=== PATIENT | female | born 1960 | race Caucasian/White ===

== ENCOUNTER 2019-05-14 05:33 | Inpatient (IN) | payer BC ==
[~2019-05-14 05:33] MED LIST: Buffered Lidocaine 1% SYRIN* 1 ML/SYRINGE INTRADERM ONE; Tranexamic Acid 1,000 MG in NS 0.9% 50 ML* (outpatient use) IV SCH
--- OUTSIDE RECORDS SUMMARY | 2019-05-14 05:36 | XMS REPORT | Continuity of Care Document ---
:1960 External Reference #:[id number] Author Name Lu Vance M.D. 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 Onset: 04/07/2019 Localized, primary osteoarthritis Lu Vance M.D. Onset: 04/07/2019 Social History Type Date Description Comments Sex Unknown Tobacco Use Start: Unknown Patient has never smoked Smoking Status Reviewed: 04/07/19 Patient has never smoked Allergies, Adverse Reactions, Alerts Description No Known Drug Allergies Medications Active Medications SIG Qnty Indications Ordering Provider Date Spiriva Handihaler take one inhalation Unknown a day 18mcg Capsules Meloxicam 1 by mouth every Unknown 15mg Tablets day Albuterol Sulfate HFA Unknown 108(90Base) mcg/Act Aerosol Enalapril Maleate 1 by mouth every Unknown 10mg day Tablets Fluoxetine HCL 1 by mouth every Unknown 20mg day Capsules Immunizations Description No Information Available Vital Signs Date Vital Result Comment 04/07/2019 9:31am Height 65 inches 5'5" Weight 185.00 lb Heart Rate 76 /min BP Systolic 126 mmHg BP Diastolic 82 mmHg Body Temperature 97.9 F Pain Level 3 BMI (Body Mass Index) 30.8 kg/m2 Results Description No Information Available Procedures Description No Information Available Medical Devices Description No Information Available Encounters Description No Information Available Assessments Date Code Description Provider 04/07/2019 M25.561 Pain in right knee Lu Vance M.D. 04/07/2019 M25.461 Effusion, right knee Lu Vance M.D. 04/07/2019 M17.11 Unilateral primary osteoarthritis, right knee Lu Vance M.D. 04/07/2019 M21.161 Varus deformity, not elsewhere classified, Lu Vance M.D. right knee Plan of Treatment 04/07/2019 - Lu Vance M.D.M25.561 Pain in right kneeFollow up:Follow up: 7-10 days before uhqsaphI45.461 Effusion, right kneeM17.11 Unilateral primary osteoarthritis, right kneeM21.161 Varus deformity, not elsewhere classified, right knee Functional Status Description No Information Available Mental Status Description No Information Available Referrals Description No Information Available
--- OUTSIDE RECORDS SUMMARY | 2019-05-14 05:36 | XMS REPORT | Continuity of Care Document ---
:1960 External Reference #:[id number] Author Name Lu Vance M.D. 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 Onset: 04/07/2019 Localized, primary osteoarthritis Lu Vance M.D. Onset: 04/07/2019 Social History Type Date Description Comments Sex Unknown Tobacco Use Start: Unknown Patient has never smoked Smoking Status Reviewed: 04/30/19 Patient has never smoked Allergies, Adverse Reactions, Alerts Description No Known Drug Allergies Medications Active Medications SIG Qnty Indications Ordering Provider Date Spiriva Handihaler take one inhalation Unknown a day 18mcg Capsules Meloxicam 1 by mouth every Unknown 15mg Tablets day Albuterol Sulfate HFA Unknown 108(90Base) mcg/Act Aerosol Enalapril Maleate 1 by mouth every Unknown 10mg day Tablets Fluoxetine HCL 3 tabs by mouth Unknown 20mg every day Capsules Vascepa Unknown Montelukast Sodium Unknown Zyrtec Allergy Unknown Immunizations Description No Information Available Vital Signs Date Vital Result Comment 04/30/2019 1:07pm Height 65 inches 5'5" Weight 180.00 lb Heart Rate 78 /min BP Systolic 118 mmHg BP Diastolic 74 mmHg Body Temperature 98.4 F Pain Level 2 BMI (Body Mass Index) 30.0 kg/m2 04/07/2019 9:31am Height 65 inches 5'5" Weight 185.00 lb Heart Rate 76 /min BP Systolic 126 mmHg BP Diastolic 82 mmHg Body Temperature 97.9 F Pain Level 3 BMI (Body Mass Index) 30.8 kg/m2 Results Test Acquired Date Facility Test Result H/L Range Note CBC Auto 04/30/2019 [facility] White Blood 5.2 10^3/uL Normal 3.5-10.[address] [place] [address] [phone] Red Blood Count 4.62 10^6/uL Normal 3.70-4.87 Hemoglobin 13.4 g/dL Normal 12.0-16.0 Hematocrit 39 % Normal 35-47 Mean Corpuscular Volume 85 fL Normal 80-97 Mean Corpuscular Hemoglobin 29 pg Normal 27-31 Mean Corpuscular HGB Conc 34 g/dL Normal 31-36 Red Cell Distribution Width 14 % Normal 10-15 Platelet Count 211 10^3/uL Normal 150-450 Mean Platelet Volume 8.0 fL Normal 7.4-10.4 Abs Neutrophils 3.2 10^3/uL Normal 1.5-7.7 Abs Lymphocytes 1.3 10^3/uL Normal 1.0-4.8 Abs Monocytes 0.5 10^3/uL Normal 0-0.8 Abs Eosinophils 0.2 10^3/uL Normal 0-0.6 Abs Basophils 0.0 10^3/uL Normal 0-0.2 Abs Nucleated RBC 0.0 10^3/uL Granulocyte % 62.3 % Lymphocyte % 24.1 % Monocyte % 10.0 % Eosinophil % 3.0 % Basophil % 0.6 % Nucleated Red Blood Cells % 0.1 Inr/Protime 04/30/2019 [facility] Inr 0.99 Normal 0.82-1.[address] [place] [address] [phone] Laboratory test 04/30/2019 [facility] Partial 38.4 High 26.0- 38.[address] [place] [address] Time PTT [phone] Comp Metabolic 04/30/2019 [facility] Sodium 139 mmol/L Normal 135-[address] [place] [address] [phone] Potassium 4.0 mmol/L Normal 3.5-5.0 Chloride 105 mmol/L Normal 101-111 Co2 Carbon Dioxide 27 mmol/L Normal 22-32 Anion Gap 7 mmol/L Normal 2-11 Glucose 88 mg/dL Normal 70-100 Blood Urea Nitrogen 25 mg/dL High 6-24 Creatinine 0.65 mg/dL Normal 0.51-0.95 BUN/Creatinine Ratio 38.5 High 8-20 Calcium 9.5 mg/dL Normal 8.6-10.3 Total Protein 6.7 g/dL Normal 6.4-8.9 Albumin 4.2 g/dL Normal 3.2-5.2 Globulin 2.5 g/dL Normal 2-4 Albumin/Globulin Ratio 1.7 Normal 1-3 Total Bilirubin 0.40 mg/dL Normal 0.2-1.0 Alkaline Phosphatase 87 U/L Normal 34-104 Alt 20 U/L Normal 7-52 Ast 19 U/L Normal 13-39 Egfr Non- 94.3 >60 Egfr 114.1 >60 2 Type & Screen 04/30/2019 [facility] Patient Blood Type A Positive [address] [place] [address] [phone] Antibody Screen NEGATIVE Urine Culture And 04/30/2019 [facility] Urine Culture SEE RESULT [address] [place] [address] [phone] 1 Standard intensity warfarin therapeutic range: 2.0-3.0 High intensity warfarin therapeutic range: 2.5-3.5 2 Because ethnic data is not always readily available, this report includes an eGFR for both -Americans and non- Americans. The National Kidney Disease Education Program (NKDEP) does not endorse the use of the MDRD equation for patients that are not between the ages of 18 and 70, are , have extremes of body size, muscle mass, or nutritional status, or are non- or non-. According to the National Kidney Foundation, irrespective of diagnosis, the stage of the disease is based on the level of kidney function: Stage Description GFR(mL/min/1.73 m(2)) 1 Kidney damage with normal or decreased GFR 90 2 Kidney damage with mild decrease in GFR 60-89 3 Moderate decrease in GFR 30-59 4 Severe decrease in GFR 15-29 5 Kidney failure <15 (or dialysis) 3 SEE RESULT BELOW Name: DIPTI LAINEZ Natalya : [address]: Lu Vance MD Acct: [id number] Unit: [id number] AGE: 58 Location: [facility] Re04/30/19 SEX: F Status: REG REF SPEC: [id number] JORDANA: 04/30/[address] [facility] DR: Lu Vance MD REQ: [id number] RECD: 04/30/19 STATUS: BHARAT SCHILLING DR: Raj Balbuena MD _ SOURCE: URINE SPDESC: ORDERED: Urine Culture QUERIES: Urine Source: Clean Catch Procedure Result Reported Site Urine Culture Final 05/01/19- 1028 ML No Growth (<1,000 CFU/mL) * ML - Main Lab . END OF REPORT DEPARTMENT OF PATHOLOGY, [address] [place] [address] Francois Lu M.D. Director [facility] # [id number] Procedures Description No Information Available Medical Devices Description No Information Available Encounters Type Date Location Provider Dx Diagnosis Office Visit 04/07/2019 [facility] Lu Vance, M25.561 Pain in right 8:45a at [place] M.DCarlos knee M25.461 Effusion, right knee M17.11 Unilateral primary osteoarthritis, right knee M21.161 Varus deformity, not elsewhere classified, right knee Assessments Date Code Description Provider 04/30/2019 M21.161 Varus deformity, not elsewhere classifiedLu M.D. right knee 04/30/2019 M17.11 Unilateral primary osteoarthritis, right knee Lu Vance M.D. 04/30/2019 M25.461 Effusion, right knee Lu Vance M.D. 04/30/2019 M25.561 Pain in right knee Lu Vance M.D. 04/07/2019 M25.561 Pain in right knee Lu Vance M.D. 04/07/2019 M25.461 Effusion, right knee Lu Vance M.D. 04/07/2019 M17.11 Unilateral primary osteoarthritis, right knee Lu Vance M.D. 04/07/2019 M21.161 Varus deformity, not elsewhere classified, Lu Vance M.D. right knee Plan of Treatment Future Appointment(s):05/14/2019 8:30 am - Lu Vance M.D. at [facility] at Yqdwqq3704/30/2019 - Lu Vance M.D.M21.161 Varus deformity, not elsewhere classified, right kneeFollow up:Follow up: 2 weeks after nxtksmsM58.11 Unilateral primary osteoarthritis, right kneeM25.461 Effusion, right kneeM25.561 Pain in right knee Functional Status Description No Information Available Mental Status Description No Information Available Referrals Description No Information Available
--- OUTSIDE RECORDS SUMMARY | 2019-05-14 05:36 | XMS REPORT | Continuity of Care Document ---
:1960 External Reference #:[id number] Author Name Lu Vance M.D. 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 [phone] Problems Active Problems Provider Date Acquired genu [...] Result H/L Range Note CBC Auto 04/30/2019 [facility] White Blood 5.2 10^3/uL Normal 3.5-10.[address] [place] [address] [phone] Red Blood Count 4.62 10^6/uL Normal 3.70-4.87 [...] Red Blood Cells % 0.1 Inr/Protime 04/30/2019 [facility] Inr 0.99 Normal 0.82-1.[address] [place] [address] [phone] Laboratory test 04/30/2019 [facility] Partial 38.4 High 26.0- 38.[address] [place] [address] Time PTT [phone] Comp Metabolic 04/30/2019 [facility] Sodium 139 mmol/L Normal 135-[address] [place] [address] [phone] Potassium 4.0 mmol/L Normal 3.5-5.0 Chloride 105 [...] 114.1 >60 2 Type & Screen 04/30/2019 [facility] Patient Blood Type A Positive [address] [place] [address] [phone] Antibody Screen NEGATIVE Urine Culture And 04/30/2019 [facility] Urine Culture SEE RESULT [address] [place] [address] [phone] 1 Standard intensity warfarin therapeutic range: 2.0-3.0 [...] [address]: Lu Vance MD Acct: [id number] Unit: [id number] AGE: 58 Location: [facility] Re04/30/19 SEX: F Status: REG REF SPEC: [id number] JORDANA: 04/30/[address] [facility] [address]: Lu Vance MD REQ: [id number] RECD: 04/30/19 STATUS: BHARAT SCHILLING DR: Raj Balbuena MD _ SOURCE: URINE SPDESC: ORDERED: Urine Culture QUERIES: Urine Source: Clean Catch Procedure Result Reported Site Urine Culture Final 05/01/19- 1028 ML No Growth (<1,000 CFU/mL) * ML - Main Lab . END OF REPORT DEPARTMENT OF PATHOLOGY, [address] [place] [address] Francois Lu M.D. Director [facility] # [id number] Procedures Description No Information Available Medical Devices Description No Information Available Encounters Type Date Location Provider Dx Diagnosis Office Visit 04/07/2019 [facility] Lu Vance, M25.561 Pain in right 8:45a at [place] M.DCarlos knee M25.461 Effusion, right knee M17.11 [...] of Treatment Future Appointment(s):05/14/2019 8:30 am - SOLIS Ochoa at [facility] at Xfzgjl0605/26/2019 11:30 am - Lu Vance M.D. at [facility] at Uowqvx0405/14/2019 8:30 am - Lu Vance M.D. at [facility] at Msnyrx8704/30/2019 - Lu Vance M.D.M21.161 Varus deformity, not elsewhere classified, right kneeFollow up:Follow up: 2 weeks after fkoxwthX76.11 Unilateral primary osteoarthritis, right kneeM25.461 Effusion, right kneeM25.561 Pain in right knee Functional Status Description No Information Available Mental Status Description No Information Available Referrals Description No Information Available
--- OUTSIDE RECORDS SUMMARY | 2019-05-14 05:36 | XMS REPORT | Continuity of Care Document ---
:1960 External Reference #:[id number] Author Name Lu Vance M.D. 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 Problems Active Problems Provider Date Acquired genu [...] Result H/L Range Note CBC Auto 04/30/2019 [facility] White Blood 5.2 10^3/uL Normal 3.5-10.[address] [place] [address] [phone] Red Blood Count 4.62 10^6/uL Normal 3.70-4.87 [...] Red Blood Cells % 0.1 Inr/Protime 04/30/2019 [facility] Inr 0.99 Normal 0.82-1.[address] [place] [address] [phone] Laboratory test 04/30/2019 [facility] Partial 38.4 High 26.0- 38.[address] [place] [address] Time PTT [phone] Comp Metabolic 04/30/2019 [facility] Sodium 139 mmol/L Normal 135-[address] [place], [place] [address] [phone] Potassium 4.0 mmol/L Normal 3.5-5.0 Chloride 105 [...] 114.1 >60 2 Type & Screen 04/30/2019 [facility] Patient Blood Type A Positive [address] [place] [address] [phone] Antibody Screen NEGATIVE 1 Standard intensity warfarin therapeutic range: 2.0-3.0 [...] 15-29 5 Kidney failure <15 (or dialysis) Procedures Description No Information Available Medical Devices Description No Information Available Encounters Type Date Location Provider Dx Diagnosis Office Visit 04/07/2019 [facility] Lu Vance, M25.561 Pain in right 8:45a at [facility]. knee M25.461 Effusion, right knee M17.11 Unilateral primary osteoarthritis, right knee M21.161 Varus deformity, not elsewhere classified, right knee Assessments Date Code Description Provider 04/30/2019 M21.161 Varus deformity, not elsewhere classified, Lu Vance M.D. right knee 04/30/2019 M17.11 Unilateral primary [...] 8:30 am - Lu Vance M.D. at [facility] at Hiklys5704/30/2019 - Lu Vance M.D.M21.161 Varus deformity, not elsewhere classified, right kneeFollow up:Follow up: 2 weeks after rkfrmryH82.11 Unilateral primary osteoarthritis, right kneeM25.461 Effusion, right kneeM25.561 Pain in right knee Functional Status Description No Information Available Mental Status Description No Information Available Referrals Description No Information Available
--- OUTSIDE RECORDS SUMMARY | 2019-05-14 05:36 | XMS REPORT ---
:1960 Author Name Liset Handy Address [address] [place] [address] Care Team Providers Name Role Phone Liset Handy Unavailable Unavailable PROBLEMS Type Condition ICD9-CM VLQ43-WH Onset Condition SNOMED Code Code Code Dates Status Problem Leiomyoma of uterus, D25.9 Active 96241400 unspecified Problem Mammographic R92.0 Active 96370039092570 microcalcification found on diagnostic imaging of breast Problem Family history of Z80.3 Active 437024315 malignant neoplasm of breast Problem Postmenopausal N95.0 Active 18931817 bleeding ALLERGIES No Information ENCOUNTERS Encounter Location Date Diagnosis [facility] O[facility]YN 103 July, Mammographic OBGYN [facility] microcalcification found on [place] [id number] diagnostic imaging of breast R92.0 [facility] 103 July, OBGYN [place], [place] [id number] [facility] July, Postmenopausal bleeding OBGYN [facility] N95.0 ; Leiomyoma of uterus, [place], [place] [id number] unspecified D25.9 and Family history of malignant neoplasm of breast Z80.3 [facility] 103 July, [facility] [place] [id number] [facility] O[facility]YN 103 July, Encounter for gynecological OBGYN [facility] examination (general) [place], [place] [id number] (routine) with abnormal findings Z01.411 ; Encounter for screening for malignant neoplasm of cervix Z12.4 ; Encounter for screening for malignant neoplasm of colon Z12.11 ; Encounter for screening mammogram for malignant neoplasm of breast Z12.31 ; Postmenopausal bleeding N95.0 and Family history of malignant neoplasm of breast Z80.3 IMMUNIZATIONS No Known Immunizations SOCIAL HISTORY Never Assessed REASON FOR REFERRAL FUNCTIONAL STATUS PLAN OF CARE VITAL SIGNS MEDICATIONS Unknown Medications PROCEDURES No Known procedures RESULTS No Results REASON FOR VISIT [facility] 10/28/18 Insurance Providers [facility] Member Patient Patient Patient Patient Patient Subscriber Subscriber Subscriber Group Insurance Plan Plan Plan Plan ID Relationship Address Phone Name Date of ID Name Date of No Type Insurance Insurance Insurance Coverage to Subscriber Address Phone Name Dates [place] [phone] [place]mer[place] [id number] [place] [id number] [address] Cross/Blue [facility] Cross/Blue Shield [id number] Shield MEDICAL (GENERAL) HISTORY Type Description Date Medical History hypertension Medical History anxiety Medical History depression Medical History arthritis Medical History asthma Medical History eczema Surgical History vein surgery 1998 Surgical History reduction mammoplasty 2002 Surgical History colonoscopy 2012 Hospitalization History several stays as a child d/t asthma Hospitalization History childbirth 1986 Hospitalization History childbirth 1998
[2019-05-14] MEDS ORDERED: Lactated Ringers 1000 ML Bag* 1,000 ML IV SCH ×2 (06:00→11:00)
[2019-05-14] MEDS ORDERED: ceFAZolin 2 GM in NS PREMIX(*) 2 GM/100 ML BAG IVPB ONE (06:01)
[2019-05-14] MEDS ORDERED: ROPIVACAINE 5 MG/ML 30 ML BTL (0.5%) ONE ×2 (06:36→07:15)
[2019-05-14] MEDS ORDERED: Lidocaine 2% PF * 5 ML VIAL ONE ×2 (07:14→07:15)
[2019-05-14] MEDS ORDERED: Propofol* 10 MG/ML 20 ML BTL ONE (07:14)
[2019-05-14] MEDS ORDERED: Dexmedetomidine* 200 MCG/2 ML 2 ML VIAL ONE (07:15)
[2019-05-14] MEDS ORDERED: Midazolam* 1 MG/ML 2 ML VIAL (2 MG) ONE ×3 (07:15→09:28)
[2019-05-14] MEDS ORDERED: Bupivacaine 0.5% SDV PF* 30ML VIAL ONE (07:15)
[2019-05-14] MEDS ORDERED: KETAMINE HCL* 50 MG/ML 10 ML VIAL ONE (08:01)
[2019-05-14] MEDS ORDERED: Propofol* 500 MG/50 ML BTL ONE (08:01)
[2019-05-14] MEDS ORDERED: Dexamethasone IV* 4 MG/ML 1 ML (4 MG) ONE (08:12)
[2019-05-14] MEDS ORDERED: EPHEDrine (Pressors)* 50 MG/ML VIAL ONE (08:19)
[2019-05-14] MEDS ORDERED: Ondansetron INJ* 2 MG/ML VIAL IV PRN ×2 (10:01→10:17)
[2019-05-14] MEDS ORDERED: fentaNYL* 50 MCG/ML 2 ML VIAL (100 MCG VIAL) IV PRN (10:01)
[2019-05-14] MEDS ORDERED: oxyCODONE TAB* 5 MG TAB PO PRN (10:01)
[2019-05-14] MEDS ORDERED: Acetaminophen TAB* 325 MG PO PRN (10:01)
[2019-05-14] MEDS ORDERED: Naloxone* 0.4 MG/ML 1 ML VIAL IV PRN (10:01)
[2019-05-14] MEDS ORDERED: Polyethylene Glycol 3350* 17 GM PACKET PO PRN (10:17)
[2019-05-14] MEDS ORDERED: Morphine INJ* 2 MG/ML 1 ML SYRINGE (TWO MG - NEW SYRINGE VERSION) IV PRN (10:17)
[2019-05-14] MEDS ORDERED: traZODone TAB* 50 MG TAB PO PRN (10:17)
[2019-05-14] MEDS ORDERED: diPHENhydraMINE PO* 25 MG PO PRN (10:17)
[2019-05-14] MEDS ORDERED: Cyclobenzaprine TAB* 10 MG PO PRN (10:17)
[2019-05-14] MEDS ORDERED: diPHENhydraMINE IV* 50 MG/ML 1 ml VIAL (BENADRYL) IV PRN (10:17)
[2019-05-14] MEDS ORDERED: traMADol TAB* 50 MG PO PRN (10:17)
[2019-05-14] MEDS ORDERED: oxyCODONE/Acetamin 5/325 MG* TAB PO PRN (10:17)
[2019-05-14] MEDS ORDERED: Ondansetron ODT TAB* 4 MG PO PRN (10:17)
[2019-05-14] MEDS ORDERED: Magnesium Hydroxide LIQ* 30 ML UDC PO PRN (10:17)
--- NOTE | 2019-05-14 12:20 | CONS ---
CONSULTATION REPORT: DATE OF CONSULT: 05/14/19 PRIMARY CARE PROVIDER: Dr. Balbuena. PHYSICIAN REQUESTING CONSULT: Dr. Vance from Orthopedic Surgery in regards of medical co-management of the patient's history of hypertension and asthma, who underwent right total knee replacement surge ry today. CHIEF COMPLAINT: Right knee pain. HISTORY OF PRESENT ILLNESS: Luz Maria Vasquez is a 58-year-old female with history of asthma and hype rtension, who is status post elective right knee surgery today performed by Dr. Vance. Postoperative ly, she feels that her right knee is "sore." Medicine consult was requested in regards to co-management of chronic medical conditions. PAST MEDICAL HISTORY: 1. Asthma. 2. Dyslipidemia. 3. Arthritis. 4. Status post varicose vein surgery in 2003. 5. Mammoplasty in the past. MEDICATIONS: Include: 1. Spiriva 1 inhalation daily. 2. Omeprazole 20 mg daily. 3. Singulair 10 mg daily. 4. Mobic 15 mg on a p.r.n. basis. 5. Vascepa 2 g b.i.d. 6. Fluoxetine 60 mg daily. 7. Enalapril 10 mg daily. 8. Zyrtec 10 mg daily. 10. Biotene mouth spray 1 spray b.i.d. orally. 11. Albuterol inhaler on a p.r.n. basis. ALLERGIES: No known drug allergies. FAMILY HISTORY: Positive for mother with breast cancer. Brothe r with testicular cancer. DICTATION ENDS HERE [id number]/[facility] #: [id number]
--- NOTE | 2019-05-14 12:20 | CONS ---
CONSULTATION NOTE: DATE OF CONSULT: 05/14/19 ADDENDUM: SOCIAL HISTORY: The patient has a history of smoking for a total of 1 year in . She currently does not smoke. She denies any alcohol or drug use. She lives with her who is her surrogate. REVIEW OF SYSTEMS: Please see history of present illness. All the remaining 12 systems were reviewed with the patient and were otherwise negative. PHYSICAL EXAM: Blood pressure of 157/79, heart rate of 18 and regular, respiratory rate 20, oxygen saturation 95% on room air, temperature 97.0. General: The patient is a very pleasant 58-year-old female who is in no acute distress. The patient is alert and oriented x3. HEENT: Head: Atraumatic, normocephalic. Eyes: Pupils are equal and reactive to light and accommodation. Oropharynx clear. Mucosa moist. Neck: Supple. No JVD. No bruit bilaterally. Cardiovascular: Regular rate and rhythm. No murmur. Respiratory : Clear to auscultation bilaterally. Abdomen: Soft, nontender. Bowel sounds present in all 4 quadrants. Extremities: There is no edema. Pulses are +2 bilaterally. No clubbing or cyanosis. The right postoperative knee is in postoperative dressing and Cryo unit in place. DIAGNOSTIC STUDIES/LAB DATA: Currently none. ASSESSMENT AND PLAN: 1. For postoperative management of the patient, status post elective right knee surgery, as per Dr. Vance's service. The patient was already placed on Eliquis for DVT prophylaxis postoperatively. 2. In regards to the patient's hypertension, I am going to continue the patient 's lisinopril with hold parameters. 3. Asthma, not on exacerbation. I recommend continuation of the patient's outpatient inhalers. 4. The patient's code status is full. Her surrogate is her . Thank you very much for allowing our service to see your patient in consultation. We will follow on an as needed basis. TIME SPENT: Approximately 55 minutes was spent on the patient's consult. [id number]/[facility] #: [id number] MTDD
[2019-05-14] MEDS: Acetaminophen TAB* 325 MG PO SCH ×2 (12:56→21:26)
[2019-05-14] MEDS: oxyCODONE TAB* 5 MG TAB PO PRN ×2 (12:57→19:26)
--- NOTE | 2019-05-14 14:06 | OP ---
Operative Report - Blank - Operative Report Date of Operation: 05/14/19 Note: DIPTI LAINEZ 1960 Date of Surgery: 05/14/19 Lu Vance MD Supply Technician: Trinh MATHEW did help throughout the procedure with preparation of the knee, wound retraction, manipulation of the knee, and wound closure. Anesthesiologist: Dr. Prieto Anesthesia Type: Spinal Preoperative Diagnosis: Right severe degenerative osteoarthritis of the knee Postoperative Diagnosis: As above Procedure Performed: Right Total Knee Arthroplasty Tourniquet time: 47 minutes Complications: None Specimen: Bone and cartilage from the right knee joint sent to pathology. Hardware Used: Cemented [employer] total knee hardware was used - For the femur a size 5 narrow right oxinium legion posterior stabilized femoral component, for the tibia a size 3 right jass II tibial baseplate, for the insert a size 11mm 3-4 posterior stabilized articular polyethylene insert, and for the patella a size 32 3-peg all poly patella. Brief History/Indication: DIPTI LAINEZ was known in clinic and had a history of severe right knee pain and swelling. She failed conservative treatment with anti-inflammatories, pain pills, intra-articular injections and physical therapy. She elected to undergo right total knee arthroplasty due to continued pain and decreased quality of life. Radiographs showed severe end stage osteoarthritis of the knee with bone on bone contact. Informed consent was obtained from the patient. She understood the risks of surgery included but were not limited to: bleeding, infection, damage to nearby structures, intraoperative fracture, nerve palsy, failure of the hardware, early loosening, knee stiffness or loss of motion, anesthesia complications, stroke, heart attack , blood clot and . She wished to proceed. Intra-Operative Findings: Intraoperatively the patient was noted to have severe loss of cartilage in all 3 compartments of the knee. Description of the Procedure: DIPTI LAINEZ was identified in the preanesthesia unit. Her right knee was marked as the correct operative side. Informed consent was signed and placed in the chart. The patient was taken to the operating room and placed under anesthesia without complication. A sue catheter was placed. A tourniquet was placed on the right thigh. The right lower extremity was prepped and draped in the usual sterile fashion. Preoperative time-out was made to correctly identify the patient, side and site. Appropriate intraoperative antibiotics were given within one hour of incision. Tourniquet was inflated. A midline incision was made and carried sharply down to the extensor mechanism. A new 10 blade was used to make a standard medial parapatellar arthrotomy. The patella was subluxed laterally. Electrocautery was used to dissect soft tissue off the superomedial tibia to the midsagittal plane. The knee was flexed up. The anterior horn of the lateral meniscus and the ACL were sharply incised. A drill was used to enter the distal femur. The intramedullary distal femoral cutting guide was pinned on the distal femur. The oscillating saw was used to make the distal femoral cut. The external rotation guide was pinned on the distal femur and the distal femur was sized to a size 5. The size 5 multi-cutting jig was pinned on the distal femur. The oscillating saw was used to make the appropriate 4 chamfer cuts. Next the PCL was completely released. The extramedullary tibial cutting guide was pinned on the proximal tibia and the oscillating saw was used to make the proximal tibial cut perpendicular to the mechanical axis of the tibia. The bone was carefully removed. The knee was brought out into full extension. The spacer block was placed and had excellent fit with the knee in full extension. The medial and lateral ligaments were well balanced. The flexion and extension gaps were well balanced. The knee was flexed up. Lamina enamel dipper was placed both medially and laterally. Any remaining meniscus was removed with electrocautery. Curved osteotome was used to remove any posterior osteophytes. The tibial tray and drop shemar were placed and confirmed a satisfactory tibial cut. The size 5 right femoral trial was impacted onto the distal femur. This trial had excellent fit and stability. The box for the posterior stabilized implant was prepared using a box cut osteotome and a reamer. Next a tibial tray trial and 9 mm insert trial was placed. The knee was taken through a range of motion and had full extension to 130 degrees of flexion. Patellofemoral tracking was satisfactory. The patella was inverted and sized to a size 32. Three peg holes were drilled through the size 32 drill guide. The trial patella was placed and the knee was taken through a range of motion. There was satisfactory patellofemoral tracking. All trials were removed. The tibia was subluxed anteriorly and sized to a size 3. The proximal tibial was prepared with a size 3 keel punch. All bony cut surfaces were irrigated with sterile saline and dried. Final implants were cemented into place starting with the tibia, followed by the femur, and last the patella. A 11 mm insert trial was placed and the knee was brought into full extension. Tourniquet was turned down and the knee was copiously irrigated with sterile saline. Electrocautery was used to obtain meticulous hemostasis. Once the cement had fully cured, the insert trial was removed. Any excess cement was removed from around the hardware and capsule. Final insert chosen was a 11 mm posterior stabilized Jass II articular insert size 3-4. Stability of the insert was checked and noted to be stable. The extensor mechanism was closed using number 1 vicryls. The rest of the incision was closed in a layered fashion using 0 and 2-0 vicryls. The skin was closed using 3-0 nylon suture. Sterile xeroform, 4x4s and webril were used to cover the incision. Chi wrap and cold pack were used to cover the dressings. The patients anesthesia was reversed without difficulty. She was taken to the PACU in stable condition. Intended weight-bearing will be as tolerated.
--- NOTE | 2019-05-14 15:07 | PN ---
Progress Note - Progress Note Date of Service: 05/14/19 SOAP: The pt was seen lying in bed this afternoon. She has been up and walked with PT. She states that she is doing well. She denies any chest pain, SOB or palpitations. She is able to walk to the bathroom and would like her sue out home. We placed an order to remove the sue today.
[2019-05-14] MEDS: oxyCODONE/Acetamin 5/325 MG* TAB PO PRN (15:10)
[2019-05-14] MEDS: ceFAZolin 1 GM ADVAN(*) 1 GM in NS 0.9% 50 ML* 50 ML IVPB SCH (15:11)
[2019-05-14] MEDS ORDERED: FLUoxetine CAP* 20 MG PO SCH (18:00)
[2019-05-14] MEDS ORDERED: Enalapril TAB* 5 MG PO SCH (18:00)
[2019-05-14] MEDS ORDERED: ENALAPRIL MALEATE 10 MG PO SCH (18:00)
[2019-05-14] MEDS ORDERED: Montelukast Sodium TAB* 10 MG PO SCH (18:00)
[2019-05-14] MEDS ORDERED: Cetirizine* 10 MG TAB PO SCH (18:00)
[2019-05-14] MEDS ORDERED: Pantoprazole TAB * 40 MG TAB PO SCH (18:00)
[2019-05-14] MEDS: Docusate CAP* 100 MG PO SCH (21:17)
[2019-05-14] MEDS: Magnesium Hydroxide LIQ* 30 ML UDC PO SCH (21:17)
[2019-05-14] MEDS: ICOSAPENT ETHYL 2 GM PO SCH (21:18)
[2019-05-15] MEDS: ceFAZolin 1 GM ADVAN(*) 1 GM in NS 0.9% 50 ML* 50 ML IVPB SCH ×2 (00:18→08:17)
[2019-05-15] MEDS: oxyCODONE/Acetamin 5/325 MG* TAB PO PRN ×2 (00:29→12:51)
[2019-05-15 05:48] LABS: Hematocrit 32 % (35-47); Hemoglobin 10.8 g/dL (12.0-16.0); Mean Platelet Volume 8.5 fL (7.4-10.4); Platelet Count 196 10^3/uL (150-450)
[2019-05-15 06:00] LABS: Calcium 8.7 mg/dL (8.6-10.3); Potassium 4.5 mmol/L (3.5-5.0)
[2019-05-15 06:05] LABS: BUN/Creatinine Ratio 38.2 (8-20); EGFR African American 108.3 (>60); EGFR Non-African American 89.5 (>60)
[2019-05-15] MEDS: oxyCODONE TAB* 5 MG TAB PO PRN ×2 (06:46→14:38)
[2019-05-15] MEDS: Acetaminophen TAB* 325 MG PO SCH ×2 (06:47→14:33)
[2019-05-15] MEDS: Docusate CAP* 100 MG PO SCH (08:15)
[2019-05-15] MEDS: Magnesium Hydroxide LIQ* 30 ML UDC PO SCH (08:17)
[2019-05-15] MEDS ORDERED: Vitamin THERAPEUTIC TAB PO SCH (09:00)
[2019-05-15] MEDS ORDERED: Apixaban* 2.5 MG TAB PO SCH (09:00)
[2019-05-15] MEDS ORDERED: SPIRIVA Respimat* (tiotropium) 2.5 mcg/inh Inhaler INH SCH (09:00)
[2019-05-15] MEDS: ICOSAPENT ETHYL 2 GM PO SCH (10:44)
--- NOTE | 2019-05-15 10:48 | DS ---
Orthopedic Discharge Summary - Discharge Summary Date of Admission:05/14/19 Date of Discharge: 05/15/19 Date of Surgery: 05/14/19 Attending Orthopedic Provider: Dr. Vance Pre-operative Diagnosis: Right knee osteoarthritis Operative Procedure: Right total knee arthroplasty Disposition of Patient: Home Home care vs Outpatient services: Home care Condition of Patient: Stable Pain medication RX at discharge: Percocet sent to [facility] in [place] DVT prophylaxis RX at discharge: Eliquis sent to [facility] in [place] History: DIPTI LAINEZ is a 58 year old F with years of increasingly severe right knee pain. Patient has failed conservative management and has elected to undergo a Right total knee arthroplasty Hospital Course: DIPTI was admitted to [facility] on 05/14/19. Patient underwent a Right total knee arthroplasty without complication followed by a brief recovery in PACU and transfer to the Short Stay Surgical Unit in stable condition. Our hospitalist service, physical therapy and occupational therapy also participated in this patients care. Post-op day 1: patient was alert and in no acute distress. Dressing was clean, dry and intact, dressing was changed, incision was clean, dry and intact. Operative extremity dorsiflexion and plantarflexion intact, sensation intact to light touch distally , DP2+. Patient was deemed to be medically and orthopedically stable for discharge. Physical therapy goals were met. Home Medications Medication Instructions Recorded Confirmed Type Albuterol HFA INHALER* [Ventolin 1 - 2 puff INH Q4H PRN 04/30/19 05/14/19 History HFA Inhaler*] Biotin Mouth [place] 1 spray PO BID 04/30/19 05/14/19 History Cetirizine* [ZyrTEC 10 MG TAB*] 10 mg PO 1800 04/30/19 05/14/19 History Enalapril(NF) [Enalapril (NF)] 10 mg PO 1800 04/30/19 05/14/19 History FLUoxetine CAP* [Prozac CAP*] 60 mg PO 1800 04/30/19 05/14/19 History Icosapent Ethyl [Vascepa] 2 gm PO BID 04/30/19 05/14/19 History Montelukast Sodium TAB* [Singulair 10 mg PO 1800 04/30/19 05/14/19 History 10 MG TAB*] Omeprazole 20 mg PO 1800 04/30/19 05/14/19 History Tiotropium CAPSULE (NF) [Spiriva 1 cap.inh INH QAM 04/30/19 05/14/19 History CAPSULE (NF)] Apixaban* [Eliquis*] 2.5 mg PO BID tab 05/15/19 Rx oxyCODONE/Acetamin 5/325 MG* 1 tab PO Q4H PRN tab 05/15/19 Rx [Percocet 5/325 TAB*] oxyCODONE/Acetamin 5/325 MG* 2 tab PO Q4H PRN tab 05/15/19 Rx [Percocet 5/325 TAB*] Discharge Instructions following Orthopedic Surgery: Total knee replacement Activity: * Weight Bearing as tolerated * Continue physical therapy and occupational therapy exercises as shown * If you have elected to have home physical therapy, continue therapy exercises at home. If you have elected outpatient physical therapy, please start therapy as an outpatient right away. Wound care: * OK to shower on post-op day 3, no bathing, swimming, or submerging wound. * Use gentle soap, pat dry. Cover with gauze, NICOLE wrap or tape. * If you elected to have a visiting home nurse, they will perform wound checks. Call Orthopedic office for: * Increased drainage * Redness * Increased pain * Fever Go to ER with shortness of breath or chest pain. Diet: * Regular diet * Increase fluids and fiber to prevent constipation. * Continue to use stool softeners, call office if no bowel motion within 48 hours. Medications See Home Medication List in your packet for medications that you should take after discharge. DVT Prophylaxis: Eliquis Dosin.5 mg, 1 tab every 12 hours x 30 days Pain Control: Percocet 5/325 mg 1 tab for moderate pain and 2 tabs for severe pain by mouth every 4 hours as needed. Maximum of 10 tabs per day. Hold for sedation , wean off as soon as pain allows Please note that Percocet contains Tylenol (acetaminophen). Maximum daily dose of Tylenol is 4000 mg from all sources. Antibiotics are required prior to any dental work. FOLLOW UP: Follow up with Dr. Vance within 10-14 days, call for appointment Please call our office with any questions or concerns ([phone])
[2019-05-15 11:26] VITALS: BP 110/53
== END 2019-05-15 15:20 | disposition home health service (06) | DRG 302 ==
LOC: AA 05:33 → SSU 10:17
PROVIDERS: ADMIT Orthopaedic Surgery Adult Reconstructive Orthopaedic Surgery; ATTEND Orthopaedic Surgery Adult Reconstructive Orthopaedic Surgery
PROC: 0SRC069 Replacement of Right Knee Joint with Oxidized Zirconium on Polyethylene Synthetic Substitute, Cemented, Open Approach (ICD-10-PCS; principal; 2019-05-14 07:30)
DX: M17.11 Unilateral primary osteoarthritis, right knee (principal); I10 Essential (primary) hypertension; M21.161 Varus deformity, not elsewhere classified, right knee; J45.909 Unspecified asthma, uncomplicated; E78.00 Pure hypercholesterolemia, unspecified; D64.9 Anemia, unspecified; F32.9 Major depressive disorder, single episode, unspecified; M25.761 Osteophyte, right knee; F41.9 Anxiety disorder, unspecified; Z83.3 Family history of diabetes mellitus; Z82.61 Family history of arthritis; Z82.49 Family history of ischemic heart disease and other diseases of the circulatory system; Z79.51 Long term (current) use of inhaled steroids; Z79.899 Other long term (current) drug therapy; Z80.3 Family history of malignant neoplasm of breast; Z80.43 Family history of malignant neoplasm of testis; Z87.891 Personal history of nicotine dependence
CPT/HCPCS: 36415; 80048; 85014; 85018; 85049; 88305; 88311; A9270-GY; C1776; J0690; J1100; J2250; J2704; J2795; J3490; J3535

== ENCOUNTER 2022-03-05 07:30 | Inpatient (IN) ==
[~2022-03-05 07:30] MED LIST changes: +Buffered Lidocaine 1% SYRIN 1 ml INTRADERM ONE; -Buffered Lidocaine 1% SYRIN* 1 ML/SYRINGE INTRADERM ONE; +Lactated Ringers 1000 ml BAG 1,000 ML IV SCH; -Tranexamic Acid 1,000 MG in NS 0.9% 50 ML* (outpatient use) IV SCH
[2022-03-05] MEDS ORDERED: ceFAZolin 2 GM PREMIX 2 GM/50 ML BAG ONE (08:47)
[2022-03-05] MEDS ORDERED: Midazolam 2 mg/2 ml VIAL 1 mg/ml 2 ml VIAL (2 mg) ONE ×2 (09:39→10:42)
[2022-03-05] MEDS ORDERED: Propofol 10 MG/ML 20 ML BTL ONE ×2 (09:46→12:18)
[2022-03-05] MEDS ORDERED: ROPIVACAINE 5 MG/ML 30 ML BTL (0.5%) ONE ×2 (09:57→10:15)
[2022-03-05] MEDS ORDERED: Acetaminophen IV 1 GM/100ML 1,000 MG/100 ML BAG IV PRN (11:36)
[2022-03-05] MEDS ORDERED: Naloxone 0.4 mg VIAL 0.4 mg/ml 1 ml VIAL IV PRN (11:36)
[2022-03-05] MEDS ORDERED: Ondansetron 4 mg VIAL 2 MG/ML 2 ml VIAL IV PRN ×2 (11:36→11:58)
[2022-03-05] MEDS ORDERED: Magnesium Hydroxide LIQ 30 ML UDC PO PRN (11:58)
[2022-03-05] MEDS ORDERED: Lactulose 30 ml UDC PO PRN (11:58)
[2022-03-05] MEDS ORDERED: Morphine 2 MG/ML SYRINGE IV PRN (11:58)
[2022-03-05] MEDS ORDERED: Ondansetron ODT 4 mg TAB 4 MG TAB PO PRN (11:58)
[2022-03-05] MEDS ORDERED: Acetaminophen IV 1 GM/100ML 1,000 MG/100 ML BAG IV ONE (13:57)
[2022-03-05] MEDS: fentaNYL 100 mcg/2 ml 50 MCG/ML VIAL IV PRN ×2 (14:02→14:22)
[2022-03-05] MEDS ORDERED: fentaNYL 100 mcg/2 ml 50 MCG/ML VIAL ONE (14:02)
[2022-03-05] MEDS ORDERED: Albuterol HFA INHALER 8 gm MDI INH PRN (14:48)
[2022-03-05] MEDS: Lactated Ringers 1000 ml BAG 1,000 ML IV SCH (15:44)
[2022-03-05] MEDS: ceFAZolin 1 GM ADVAN 1 GM in NS 0.9% 50 ML 50 ML IVPB SCH (20:18)
[2022-03-05] MEDS: ICOSAPENT ETHYL 1 GM CAPSULE (NF) PO SCH (20:44)
[2022-03-05] MEDS: Magnesium Hydroxide LIQ 30 ML UDC PO SCH (20:44)
[2022-03-06] MEDS: Lactated Ringers 1000 ml BAG 1,000 ML IV SCH (03:11)
[2022-03-06] MEDS: ceFAZolin 1 GM ADVAN 1 GM in NS 0.9% 50 ML 50 ML IVPB SCH ×2 (05:36→12:50)
[2022-03-06 06:22] LABS: Hematocrit 32 % (35-47); Hemoglobin 10.8 g/dL (12.0-16.0); Platelet Count 197 10^3/uL (150-450)
[2022-03-06 07:14] LABS: Calcium 8.7 mg/dL (8.6-10.3); eGFR CKD-EPI 103.3 (>60)
[2022-03-06] MEDS ORDERED: Vitamin THERAPEUTIC TAB PO SCH (09:00)
[2022-03-06] MEDS: Magnesium Hydroxide LIQ 30 ML UDC PO SCH (09:02)
[2022-03-06] MEDS: ICOSAPENT ETHYL 1 GM CAPSULE (NF) PO SCH (10:27)
[2022-03-06 11:59] VITALS: BP 113/68
== END 2022-03-06 13:42 | disposition home health service (06) | DRG 302 ==
LOC: INTOOBSV 08:09 → AA 08:09 → SSU 15:27
PROVIDERS: ADMIT Orthopaedic Surgery Adult Reconstructive Orthopaedic Surgery; ATTEND Orthopaedic Surgery Adult Reconstructive Orthopaedic Surgery